=== PATIENT | male | born 1960 | race Hispanic/Latino ===

== ENCOUNTER 2019-04-14 06:29 | Day surgery (SDC) | payer BC ==
[2019-04-13 15:53] LABS: BASOPHILS % (AUTO) 1.3 % (0.0-5.0); EOSINOPHILS % (AUTO) 4.5 % (0.0-8.0); HEMATOCRIT 43.4 % (42-54); LYMPHOCYTES % (AUTO) 26.9 % (21.0-51.0); MEAN CORPUSCULAR HEMOGLOBIN 30.3 pg (27.0-33.0); MEAN CORPUSCULAR HGB CONC 33.6 g/dL (32.0-36.0); MEAN CORPUSCULAR VOLUME 90.2 fL (79-99); MONOCYTES % (AUTO) 8.3 % (3.0-13.0); PLATELET COUNT (AUTO) 269 K/uL (130-400); RED BLOOD CELL COUNT(AUTO) 4.81 MIL/uL (4.50-6.20); RED CELL DISTRIBUTION WIDTH 14.3 % (11.0-15.5); WHITE BLOOD COUNT (AUTO) 6.8 K/uL (4.8-10.8)
[2019-04-13 15:55] VITALS: BP 134/75
[2019-04-13 16:06] LABS: CREATININE 1.1 mg/dL (0.5-1.5); POTASSIUM 4.6 mmol/L (3.5-5.1)
[2019-04-14] VITALS (18 sets, daily range): BP systolic 115–143; BP diastolic 73–83
[~2019-04-14] VITALS: Ht 172.7 cm; Wt 79.7 kg
[~2019-04-14 06:29] MED LIST: TRAZ-185 PO; TYL3 PO
[2019-04-14] MEDS ORDERED: SUCCINYLCHOLINE 200MG/10ML SYR ONE (07:19)
[2019-04-14] MEDS ORDERED: DEXAMETHASONE SOD PHOSPHATE 10MG/ML 1ML VIAL ONE (07:19)
[2019-04-14] MEDS ORDERED: MIDAZOLAM HCL 1 MG/ML 2ML VIAL ONE (07:19)
[2019-04-14] MEDS ORDERED: LIDOCAINE PF 2% 5ML ABBOJECT ONE (07:19)
[2019-04-14] MEDS ORDERED: GLYCOPYRROLATE 1 MG/5 ML SYRINGE ONE (07:19)
[2019-04-14] MEDS ORDERED: ONDANSETRON HCL 4 MG/2 ML VIAL ONE (07:20)
[2019-04-14] MEDS ORDERED: NEOSTIGMINE 5MG/5ML SYR IV ONE (07:20)
[2019-04-14] MEDS ORDERED: PROPOFOL 10 MG/ML 20ML VIAL IV ONE (07:20)
[2019-04-14] MEDS ORDERED: FENTANYL CITRATE PF 50 MCG/1 ML 2ML VIAL ONE ×2 (07:20→08:57)
[2019-04-14] MEDS ORDERED: ROCURONIUM 10MG/1ML SYR 10 MG/ML ML ONE (07:20)
[2019-04-14] MEDS ORDERED: LACTATED RINGERS 1000ML 1,000 ML IV ONE (07:22)
[2019-04-14] MEDS: CEFAZOLIN SODIUM 1 GM VIAL IVP ONE ×2 (08:01→08:50)
[2019-04-14] MEDS ORDERED: KETOROLAC TROMETHAMINE 30MG/ML ONE (09:02)
[2019-04-14] MEDS ORDERED: MEPERIDINE-PF 25 MG/ML SYG ONE ×2 (10:23→10:33)
[2019-04-14] MEDS ORDERED: NAPR-1192 PO (10:31)
[2019-04-14] MEDS ORDERED: TYL3 PO (10:31)
[2019-04-14] MEDS ORDERED: CEPH500B PO (10:31)
--- NOTE | 2019-04-14 11:20 | NUR ---
ASSESSMENT RECEIVED PT FROM PACU STAFF YARITZA STOVER. PT AAOX3. DRSG TO LEFT KNEE DRY AND INTACT. NO REDNESS, SWELLING NOTED TO SITE. ICE PACK TO LEFT KNEE IN PLACE. INSTRUCTED ON HOME USE OF ICE PACK. BOTH VERBALIZED UNDERSTANDING.
--- NOTE | 2019-04-14 12:25 | NUR ---
DISCHARGE ORAL AND WRITTEN DISCHARGE INSTRUCTIONS ALONG WITH PRESCRIPTIONS GIVEN TO PT AND PTS . PT STATES HAS CRUTCHES AT HOME. DRSG TO LEFT KNEE DRY AND INTACT.
== END 2019-04-14 12:30 | disposition home or self-care (01) ==
LOC: DAH 06:29
PROVIDERS: ATTEND Orthopaedic Surgery
DX: S83.242A Other tear of medial meniscus, current injury, left knee, initial encounter (principal); M94.262 Chondromalacia, left knee; Z98.890 Other specified postprocedural states; Z79.899 Other long term (current) drug therapy; Z96.641 Presence of right artificial hip joint; X50.9XXA Other and unspecified overexertion or strenuous movements or postures, initial encounter; Y93.89 Activity, other specified; Y92.89 Other specified places as the place of occurrence of the external cause; Y99.8 Other external cause status
CPT/HCPCS: 29881; 36415; 80048; 85025; A4223; A4606; A4649 ×3; A4930; A5120; A6223; J0330; J0690; J1100; J1885; J2001; J2175 ×2; J2250; J2405; J2704; J2710; J3010 ×2; J3490; J7120 ×2